=== PATIENT | male | born 1960 | race Caucasian/White ===

== ENCOUNTER 2017-09-19 06:48 | Emergency (ER) | payer MEDICAID ==
--- NOTE | 2017-09-19 07:54 | C.PDOC ---
History Of Present Illness 57 y/o male with htn c/o right shoulder pain since Fri night. pt sts he rolled over in bed and twisted arm somehow. pt denies any trauma, no neck pain. pt using vicks vapo-rub without improvement in pain. pt with decreased rom due to pain. denies numbness and tingling. Time Seen by Provider: 09/19/17 07:35 Chief Complaint (Nursing): Upper Extremity Problem/Injury History/Exam Limitations: no limitations Onset/Duration Of Symptoms: Days (3) Current Symptoms Are (Timing): Still Present Quality: "Pain" Severity: Moderate Exacerbating Factor(s): Movement Past Medical History Reviewed: Historical Data, Nursing Documentation, Vital Signs Vital Signs: Last Vital Signs Temp 98 F 09/19/17 09:31 Pulse 77 09/19/17 09:31 Resp 16 09/19/17 09:31 BP 129/88 09/19/17 09:31 Pulse Ox 97 09/19/17 18:33 - Medical History PMH: Arthritis, HTN Denies: Chronic Kidney Disease Surgical History: Cholecystectomy Family History: States: Unknown Family Hx - Social History Hx Alcohol Use: No Hx Substance Use: No - Immunization History Hx Tetanus Toxoid Vaccination: No Hx Influenza Vaccination: Yes Hx Pneumococcal Vaccination: No Review Of Systems Constitutional: Negative for: Fever, Chills Musculoskeletal: Positive for: Shoulder Pain (right). Negative for: Neck Pain Skin: Negative for: Rash Neurological: Negative for: Weakness, Numbness Physical Exam - Physical Exam Appears: Non-toxic, Other (uncomfortable) Skin: Warm, Dry Head: Atraumatic, Normacephalic Neck: No Midline Cervical Tenderness, No Paracervical Tenderness Extremity: Other (right shoujlder tender to anterior and posterior with dec active and passive rom due to pain at shoulder, with no swelling, erythema or warmth. from at wrist and elbow. no deformity noted. ) Pulses: Right Radial: Normal Neurological/Psych: Oriented x3, Normal Speech, Normal Cognition ED Course And Treatment O2 Sat by Pulse Oximetry: 97 Medical Decision Making Medical Decision Making: shoulder pain x 3 days- xray, nsaids, re-eval. 0919 no fx or dislocaiton noted on xray, d/c with nsaids and muscle relaxant Disposition Counseled Patient/Family Regarding: Studies Performed, Diagnosis, Need For Followup - Disposition Referrals: Kristie Ayon MD [Staff Provider] - Disposition: HOME/ ROUTINE Disposition Time: 09:20 Condition: GOOD Additional Instructions: Please apply cold compresses to shoulder several times a day. Take Naproxen as prescrbied. Muscle relaxant to take only if at home, makes you sleepy. FOllow up with orthopedics. Please try to move shoulder as much as possible. Prescriptions: Cyclobenzaprine [Cyclobenzaprine HCl] 10 mg PO Q8 #9 tab Naproxen 500 mg PO BID #20 tab Instructions: Shoulder Sprain (DC) Forms: [facility] ([place]), General Discharge Instructions - Clinical Impression Clinical Impression: Sprain of right shoulder
[2017-09-19 09:35] VITALS: BP 129/88; PULSE 77; RESP 16; TEMP 98
--- NOTE | 2017-09-19 12:56 | RAD ---
PROCEDURE: Radiographs of the Right Shoulder HISTORY: ant and pos shoulder pain COMPARISON: No prior. FINDINGS: BONES: Bone alignment and mineralization are normal. There is no acute displaced fracture or bone destruction. JOINTS: Normal. Glenohumeral and acromioclavicular joints preserved. No osteoarthritis. SOFT TISSUES: There are lobular calcifications superior to the humeral head. OTHER FINDINGS: None. IMPRESSION: No acute fracture or dislocation. Lobular calcifications superior to the humeral head may represent calcific tendinitis in the appropriate clinical setting.
[2017-09-19 18:33] VITALS: O2SAT 97
== END 2017-09-19 09:35 | disposition home or self-care (01) ==
LOC: C.ER 06:48
DX: S43.401A Unspecified sprain of right shoulder joint, initial encounter (principal); X50.1XXA Overexertion from prolonged static or awkward postures, initial encounter; Y92.003 Bedroom of unspecified non-institutional (private) residence as the place of occurrence of the external cause
CPT/HCPCS: 73030; 96372; 99285; J1885